=== PATIENT | female | born 1975 | race Caucasian/White ===

== ENCOUNTER 2019-01-25 12:46 | Emergency (ER) | payer MEDICAID ==
[~2019-01-25] VITALS: Ht 154.9 cm; Wt 101.0 kg
--- NOTE | 2019-01-25 13:40 | NUR ---
PT AMBULATORY TO ED FROM HOME ACCOMP BY AND FRIEND. C/O ITCHING AND PAIN IN VAGINA 7/10 PAIN. STS BURNING WHEN URINATING MAKES PAIN WORSE. STS IS PEEING MORE BC DRINKING MORE FLUIDS. STS FEELS SIMILAR TO A UTI BUT HAS NEVER HAD PAIN BEFORE. ATE AT [facility] FOR FIRST TIME YEST, STS ITCHING STARTED LAST NIGHT, TOOK BENADRYL AND CLARITIN W NO RELIEF. URINE SENT. VS STABLE, PT TACHYCARDIC, 110S, TEARFUL. AWAITING MD WHALEY CALL [facility] IN [facility] PRECS IN PLACE. Addendum: 01/25/19 at 1343 by VALENTINO PT AMBULATORY TO ED FROM HOME ACCOMP BY AND FRIEND. C/O ITCHING AND PAIN IN VAGINA 7/10 PAIN. STS BURNING WHEN URINATING MAKES PAIN WORSE. STS IS PEEING MORE BC DRINKING MORE FLUIDS. STS FEELS SIMILAR TO A UTI BUT HAS NEVER HAD PAIN BEFORE. DENIES FLANK PAIN OR BLOOD IN URINE. ATE AT [facility] FOR FIRST TIME YEST, STS ITCHING STARTED LAST NIGHT, TOOK BENADRYL AND CLARITIN W NO RELIEF. URINE SENT. VS STABLE, PT TACHYCARDIC, 110S, TEARFUL. AWAITING MD WHALEY CALL ROSARIO IN [facility] PRECS IN PL[facility].
[2019-01-25 13:46] LABS: CULTURE INDICATED? YES
[2019-01-25 13:47] LABS: HCG UR SG <= 1.005 (1.003-1.030)
[2019-01-25 14:04] LABS: MICROSCOPIC INDICATED
--- NOTE | 2019-01-25 14:21 | NUR ---
URINE WNL. PT RESTING IN CARE OF FRIEND. VSS. HEART RATE IMPROVED 110S TO 90S. CALL [facility] IN [place].
[2019-01-25 14:39] VITALS: BP 130/68
== END 2019-01-25 14:44 | disposition home or self-care (01) ==
LOC: ED 14:38
DX: B37.3 Candidiasis of vulva and vagina (principal)
CPT/HCPCS: 81001; 81003; 81025; 87086; 99283